=== PATIENT | male | born 1990 | race Caucasian/White ===

== ENCOUNTER 2019-10-20 08:05 | Emergency (ER) | payer OTHER, BC ==
--- NOTE | 2019-10-20 08:38 | EDM.PDOC ---
<Elmira Ochoa - Last Filed: 10/20/19 09:01> ED HPI GENERAL MEDICAL PROBLEM - General Chief Complaint: Back Pain or Injury Stated Complaint: SORE/STIFF BACK Time Seen by Provider: 10/20/19 08:33 Source of Information: Reports: Patient History Limitations: Reports: No Limitations - History of Present Illness INITIAL COMMENTS - FREE TEXT/NARRATIVE: Patient presents to the ED by private vehicle with concerns of mid to low back pain after a fall which occurred yesterday. The patient states that he was at work at [employer] when he slipped on the ice. The patient describes landing on his left elbow and back. The patient describes 2/10 mid to low back pain that is constant, achy. The pain is sharp and increases to 3/10 with certain movements. The patient denies any history of back problems or prior injury. He denies elbow pain at this time. He denies numbness or tingling in his lower extremities, numbness of tingling in upper extremities. Denies urinary incontinence or retention, denies saddle anesthesia. Onset Date: 10/19/19 Onset Time: 15:30 Duration: Constant Location: Reports: Back (mid to low back) Quality: Reports: Ache Severity: Mild Improves with: Reports: None Worsens with: Reports: None Treatments [employer]: Reports: Acetaminophen, NSAIDS Lower Back Pain Score (Numeric/FACES): 2 - Related Data Allergies Allergy/AdvReac Type Severity Reaction Status Date / Time No Known Allergies Allergy Verified 10/20/19 08:17 Home Meds: Home Meds . [No Known Home Meds] 10/20/19 [History] Past Medical History Respiratory History: Reports: Bronchitis, Recurrent - Infectious Disease History Infectious Disease History: Reports: Chicken Pox Social & Family History - Tobacco Use Smoking Status *Q: Never Smoker Second Hand Smoke Exposure: No - Caffeine Use Caffeine Use: Reports: Coffee - Recreational Drug Use Recreational Drug Use: No ED ROS GENERAL - Review of Systems Review Of Systems: Comprehensive ROS is negative, except as noted in HPI. ED EXAM,LOWER BACK PAIN/INJURY - Physical Exam Exam: See Below Exam Limited By: No Limitations General Appearance: Alert, No Apparent Distress Head: Atraumatic, Normocephalic Respiratory/Chest: No Respiratory Distress, Lungs Clear, Normal Breath Sounds Cardiovascular: Normal Peripheral Pulses, Regular Rate, Rhythm, No Edema, No Murmur Back Exam: Normal Inspection, Decreased Range of Motion (pain and decreased range of motion in rotation, flexion, extension, and lateral bending), Muscle Spasm (tenderness to palpation across mid to low back), Paraspinal Tenderness, Vertebral Tenderness. No: CVA Tenderness (L), CVA Tenderness (R) Extremities: Normal Inspection, Normal Range of Motion (full range of motion without pain in hip, knee, ankle ROM in all directions), Non-Tender, Normal Capillary Refill. No: Arm Pain, Leg Pain Neurological: Alert, Normal Mood/Affect, Normal Dorsiflexion, Normal Plantar Flexion, Normal Reflexes, No Motor/Sensory Deficits. No: Saddle Anesthesia, Difficulty Walking DTR - Lower Extremities: 2+: Knee (R), Knee (L), Ankle (R), Ankle (L) Psychiatric: Normal Affect, Normal Mood Skin Exam: Warm, Dry, Intact Course - Vital Signs Last Recorded V/S: Last Vital Signs Temp 97.4 F 10/20/19 08:12 Pulse 82 10/20/19 08:12 Resp 18 10/20/19 08:12 BP 107/79 10/20/19 08:12 Pulse Ox 98 10/20/19 08:12 - Orders/Labs/Meds Meds: Medications Discontinued Medications Generic Name Dose Route Start Last Admin Trade Name Polly PRN Reason Stop Dose Admin Cyclobenzaprine HCl 10 mg 10/20/19 08:44 10/20/19 08:57 Flexeril PO 10/20/19 08:45 10 mg ONETIME ONE Administration Ibuprofen 400 mg 10/20/19 08:44 10/20/19 08:57 Motrin PO 10/20/19 08:45 400 mg ONETIME ONE Administration - Radiology Interpretation Free Text/Narrative:: XR lumbar spine reveals no fracture or dislocation. Mild degenerative disc disease. XR thoracic spine reveals no fracture or dislocation. Mild degenerative disc disease. Departure - Departure Time of Disposition: 09:02 Disposition: Home, Self-Care 01 Condition: Good Clinical Impression: Muscle spasm Fall Qualifiers: Encounter type: initial encounter Qualified Code(s): W19.XXXA - Unspecified fall, initial encounter - Discharge Information *PRESCRIPTION DRUG MONITORING PROGRAM REVIEWED*: Not Applicable *COPY OF PRESCRIPTION DRUG MONITORING REPORT IN PATIENT HUBER: Not Applicable Instructions: Muscle Cramps and Spasms, [id number], Heat Therapy, Easy-to- Read Forms: ED Department Discharge Additional Instructions: Rest today. May apply lidocaine pain patch to sore back. May alternatively apply heat to back. Take flexeril as prescribed, as needed for pain. May also take ibuprofen as needed for pain. Take ibuprofen with food. Do not drive while taking flexeril. Follow-up with your primary care provider, or an alternative family medicine physician in 5-7 days if pain is not improved to consider referral to physical therapy. Sepsis Event Note - Evaluation Sepsis Screening Result: No Definite Risk - Focused Exam Vital Signs: Vital Signs Temp Pulse Resp BP Pulse Ox 10/20/19 08:12 97.4 F 82 18 107/79 98 Date Exam was Performed: 10/20/19 Time Exam was Performed: 09:01 <Yanira Rollisn - Last Filed: 10/20/19 15:16> Course - Re-Assessments/Exams Free Text/Narrative Re-Assessment/Exam: 10/20/19 15:15 I have examined the patient. I have discussed findings and treatment plan with the PA Student. I agree with the assessment and plan in the PA Students note Sepsis Event Note - Focused Exam Date Exam was Performed: 10/20/19 Time Exam was Performed: 15:13
[2019-10-20] MEDS ORDERED: Ibuprofen 400 MG Tab PO ONE (08:44)
[2019-10-20] MEDS ORDERED: Cyclobenzaprine 10 MG Tab PO ONE (08:44)
--- NOTE | 2019-10-21 13:27 | CR ---
EXAMINATION: Lumbar Spine 2 V SEX: Male AGE: 29 years CLINICAL HISTORY: 29-year-old male injured in fall (mid to low back pain). INTERPRETATION: Lumbar spine. 1. Normal density, height and alignment of the lowest thoracic and all lumbar vertebra. Subtle levorotoscoliosis. 2. No sign of pathologic skeletal lesion, lumbar fracture or spondylolisthesis. 3. Tiny marginal arthritic spurs (spondylosis) but normal intervertebral disc spacing. 4. Symmetric spacing normal-appearing SI and hip joints. CONCLUSION: Subtle rotoscoliosis and early arthritic change. No fracture or dislocation.
--- NOTE | 2019-10-21 13:30 | CR ---
EXAMINATION: Thoracic Spine 3V SEX: Male AGE: 29 years CLINICAL HISTORY: 29-year-old male injured in a fall (mid to low back pain). INTERPRETATION: 1. Subtle mid and lower thoracic kyphosis associated with underlying intervertebral disc space narrowing and some tiny marginal spur formation i.e. plain film evidence suggesting chronic disc disease. Clinical? 2. Homogeneous normal bone mineral density consistent with age and gender. Posterior ribs unremarkable. 3. No paraspinal soft tissue mass or hematoma. 4. No sign of pathologic skeletal lesion, fracture or spondylolisthesis (dislocation) thoracic spine. CONCLUSION: Multilevel lower mid thoracic disc disease. No fracture or dislocation dorsal spine.
== END 2019-10-20 09:09 | disposition home or self-care (01) ==
LOC: DL.ED 08:05
DX: M62.830 Muscle spasm of back (principal); W00.0XXA Fall on same level due to ice and snow, initial encounter; Y99.0 Civilian activity done for income or pay
CPT/HCPCS: 72072; 72100; 99283-25; A9270-GY

== ENCOUNTER 2021-10-31 16:28 | Emergency (ER) | payer OTHER ==
[2021-10-31] MEDS ORDERED: Methylnaltrexone 12 MG/0.6 ML SDV SUBCUT ONE (17:45)
[2021-10-31] MEDS ORDERED: Lactulose Soln 10 GM/15 ML 30 ML UD Cup PO ONE (17:45)
== END 2021-10-31 18:04 | disposition home or self-care (01) ==
LOC: DL.ED 16:28
DX: K59.03 Drug induced constipation (principal); T50.905A Adverse effect of unspecified drugs, medicaments and biological substances, initial encounter
CPT/HCPCS: 36415; 74018; 85025; 96372; 99284; A9270; J2212; 99283

== ENCOUNTER 2022-10-25 08:25 | Emergency (ER) | payer OTHER ==
[2022-10-25] MEDS ORDERED: Sodium Chloride 0.9% 10 ML Syringe FLUSH PRN (08:43)
[2022-10-25] MEDS ORDERED: Iopamidol 612 MG/ML 100 ML Bottle IVPUSH ONE (08:45)
[2022-10-25] MEDS ORDERED: Ondansetron 4 MG/2 ML SDV IVPUSH ONE (09:12)
[2022-10-25] MEDS ORDERED: Acetaminophen 500 MG Tab PO ONE (09:12)
[2022-10-25 09:32] LABS: ANION GAP 10.8 mEq/L (7-13)
[2022-10-25 12:02] LABS: CORONAVIRUS COVID-19 NAA NEGATIVE (NEGATIVE)
== END 2022-10-25 12:22 | disposition home or self-care (01) ==
LOC: DL.ED 08:25
DX: I88.0 Nonspecific mesenteric lymphadenitis (principal); Z20.822 Contact with and (suspected) exposure to COVID-19
CPT/HCPCS: 0240U; 36415; 71046; 74177; 80053; 81001; 83605; 85025; 87040; 96374; 99284; A9270; J2405; J3490; Q9967

== ENCOUNTER 2024-04-07 06:48 | Emergency (ER) | payer BC ==
[2024-04-07] MEDS: Ondansetron 4 MG/2 ML SDV IVPUSH ONE ×2 (07:30→10:06)
[2024-04-07] MEDS: Sodium Chloride 0.9% 10 ML Syringe FLUSH PRN (07:30)
[2024-04-07 07:32] LABS: BASOPHILS PERCENT AUTO 0.2 % (0.0-1.0); EOSINOPHILS PERCENT AUTO 0.8 % (1.0-3.0); HEMATOCRIT 48.9 % (40.0-54.0); HEMOGLOBIN 16.4 g/dL (14.0-18.0); LYMPHOCYTES PERCENT AUTO 8.5 % (20.5-50.1); MEAN CORPUSCULAR HEMOGLOBIN 27.8 pg (27.0-34.0); MEAN CORPUSCULAR HGB CONC 33.5 g/dL (33.0-35.0); MONOCYTES PERCENT AUTO 7.2 % (2-8); NEUTROPHILS PERCENT AUTO 83.3 % (42.2-75.2); PLATELET COUNT,PLT 314 10^3/uL (150-450); RED BLOOD CELL COUNT 5.89 10^6/uL (4.6-6.2)
[2024-04-07 07:42] LABS: A/G RATIO 1.1; ALBUMIN 4.6 g/dL (3.4-5.0); ANION GAP 16.2 mEq/L (7-13); BILIRUBIN TOTAL 0.8 mg/dL (0.2-1.0); BUN/CREATININE RATIO 10.8 (No establ ref range); CALCIUM 10.1 mg/dL (8.5-10.1); CREATININE 1.11 mg/dL (0.70-1.30); EST CRCL DRUG DOSING (CG) 111.08 mL/min; POTASSIUM,K 4.2 mmol/L (3.5-5.1); PROTEIN TOTAL,TP 8.8 g/dL (6.4-8.2)
[2024-04-07 07:45] LABS: LACTIC ACID 1.1 mmol/L (0.4-2.0)
[2024-04-07] MEDS: Sodium Chloride 0.9% 1,000 ML IV ONE (07:49)
[2024-04-07 07:53] LABS: BILIRUBIN,URINE NEGATIVE (NEGATIVE); COLOR,URINE DARK YELLOW (YELLOW); GLUCOSE,URINE NEGATIVE (NEGATIVE); KETONES,URINE NEGATIVE (NEGATIVE); LEUKOCYTE ESTERASE,URINE NEGATIVE (NEGATIVE); NITRITE,URINE NEGATIVE (NEGATIVE); OCCULT BLOOD,URINE NEGATIVE (NEGATIVE); PROTEIN,URINE 30 (NEGATIVE); UROBILINOGEN,URINE 0.2 mg/dL (0.2-1.0)
[2024-04-07 07:54] LABS: APPEARANCE,URINE SLIGHTLY CLOUDY (CLEAR)
[2024-04-07 08:04] LABS: BACTERIA,URINE FEW /HPF (0-FEW/HPF); EPITHELIAL CELLS,URINE RARE /HPF (NOT SEEN); MUCUS,URINE MANY /LPF (NOT SEEN); RBC,URINE 0-5 /HPF (0-5)
[2024-04-07] MEDS: Iopamidol 612 MG/ML 100 ML Bottle IVPUSH ONE (08:37)
[2024-04-07] MEDS: Benzocaine 20% Topical Spray UD MUCMEM ONE (09:40)
[2024-04-07] MEDS: Pantoprazole 40 MG Vial IVPUSH ONE (11:02)
== END 2024-04-07 11:35 ==
LOC: DL.ED 06:48
DX: K56.609 Unspecified intestinal obstruction, unspecified as to partial versus complete obstruction (principal); K50.919 Crohn's disease, unspecified, with unspecified complications; Z79.899 Other long term (current) drug therapy; Z86.16 Personal history of COVID-19
CPT/HCPCS: 36415; 74177; 80053; 81001; 82150; 82271; 83605; 83690; 83735; 85025; 86140; 96361; 96374; 96375; 96376; 99285; A9270; J2405; J2470; J7030; Q9967; J3490

== ENCOUNTER 2024-12-21 16:01 | Inpatient (IN) | payer BC ==
[2024-12-21 16:53] LABS: BASOPHILS PERCENT AUTO 0.3 % (0.0-1.0); EOSINOPHILS PERCENT AUTO 2.9 % (1.0-3.0); HEMATOCRIT 44.3 % (40.0-54.0); HEMOGLOBIN 16.1 g/dL (14.0-18.0); MEAN CORPUSCULAR HEMOGLOBIN 31.4 pg (27.0-34.0); MEAN CORPUSCULAR HGB CONC 36.3 g/dL (33.0-35.0); MEAN CORPUSCULAR VOLUME 86.5 fL (80-100); MONOCYTES PERCENT AUTO 10.1 % (2-8); NEUTROPHILS PERCENT AUTO 61.7 % (42.2-75.2); PLATELET COUNT,PLT 230 10^3/uL (150-450); RED BLOOD CELL COUNT 5.12 10^6/uL (4.6-6.2); WHITE BLOOD CELL COUNT,WBC 6.5 10^3/uL (5.0-10.0)
[2024-12-21 17:11] LABS: PROTHROMBIN TIME 10.3 SEC (9.0-12.0); PTT,PARTIAL THROMBOPLSTIN TIME 25.6 SEC (22.0-34.0)
[2024-12-21 17:12] LABS: A/G RATIO 1.1; ALBUMIN 3.8 g/dL (3.4-5.0); BILIRUBIN TOTAL 1.2 mg/dL (0.2-1.0); BUN/CREATININE RATIO 8.6 (No establ ref range); C-REACTIVE PROTEIN 1.78 ng/dL (<=0.50); CALCIUM 9.1 mg/dL (8.5-10.1); CREATININE 0.93 mg/dL (0.70-1.30); EST CRCL DRUG DOSING (CG) 143.71 mL/min; POTASSIUM,K 4.2 mmol/L (3.5-5.1); PROTEIN TOTAL,TP 7.3 g/dL (6.4-8.2)
[2024-12-21 17:17] LABS: LACTIC ACID 0.7 mmol/L (0.4-2.0)
[2024-12-21 17:20] LABS: ANION GAP 14.2 mEq/L (7-13)
[2024-12-21] MEDS: Iopamidol 612 MG/ML 100 ML Bottle IVPUSH ONE (17:24)
[2024-12-21] MEDS ORDERED: Acetaminophen 325 MG Tab PO PRN (19:07)
[2024-12-21] MEDS: Ketorolac 30 MG/ML SDV IVPUSH PRN (19:56)
[2024-12-21] MEDS: Ciprofloxacin 500 MG Tab PO SCH (19:57)
[2024-12-21] MEDS: metroNIDAZOLE 250 MG Tab PO SCH (19:57)
[2024-12-21] MEDS: methylPREDNISolone Sodium Succinate 40 MG/1 ML SDV IVPUSH SCH (19:59)
[2024-12-21] MEDS: Sodium Chloride 0.9% 1,000 ML IV SCH (20:00)
[2024-12-21 21:46] LABS: APPEARANCE,URINE CLEAR (CLEAR); BILIRUBIN,URINE NEGATIVE (NEGATIVE); COLOR,URINE YELLOW (YELLOW); GLUCOSE,URINE NEGATIVE (NEGATIVE); KETONES,URINE 40 (NEGATIVE); LEUKOCYTE ESTERASE,URINE NEGATIVE (NEGATIVE); NITRITE,URINE NEGATIVE (NEGATIVE); OCCULT BLOOD,URINE NEGATIVE (NEGATIVE); PH,URINE 6.5 (5.0-9.0); PROTEIN,URINE NEGATIVE (NEGATIVE); UROBILINOGEN,URINE 0.2 mg/dL (0.2-1.0)
[2024-12-21] MEDS: Melatonin 3 MG Tab PO PRN (22:07)
[2024-12-22] MEDS: Ondansetron 4 MG/2 ML SDV IVPUSH PRN (04:24)
[2024-12-22 06:47] LABS: BASOPHILS PERCENT AUTO 0.1 % (0.0-1.0); EOSINOPHILS PERCENT AUTO 0.1 % (1.0-3.0); HEMOGLOBIN 14.9 g/dL (14.0-18.0); LYMPHOCYTES PERCENT AUTO 7.9 % (20.5-50.1); MEAN CORPUSCULAR HEMOGLOBIN 30.8 pg (27.0-34.0); MEAN CORPUSCULAR HGB CONC 35.5 g/dL (33.0-35.0); MONOCYTES PERCENT AUTO 1.6 % (2-8); NEUTROPHILS PERCENT AUTO 90.3 % (42.2-75.2); PLATELET COUNT,PLT 231 10^3/uL (150-450); RED BLOOD CELL COUNT 4.83 10^6/uL (4.6-6.2)
[2024-12-22 06:48] LABS: A/G RATIO 0.9; ALBUMIN 3.4 g/dL (3.4-5.0); ANION GAP 13.6 mEq/L (7-13); BILIRUBIN TOTAL 1.1 mg/dL (0.2-1.0); BUN/CREATININE RATIO 13.3 (No establ ref range); C-REACTIVE PROTEIN 1.23 ng/dL (<=0.50); CALCIUM 9.2 mg/dL (8.5-10.1); CREATININE 0.9 mg/dL (0.70-1.30); EST CRCL DRUG DOSING (CG) 148.5 mL/min; MAGNESIUM 1.8 mg/dL (1.8-2.4); POTASSIUM,K 4.6 mmol/L (3.5-5.1)
[2024-12-22] MEDS: Metoclopramide 10 MG/2 ML SDV IVPUSH ONE (12:44)
[2024-12-22] MEDS: Metoclopramide 10 MG/2 ML SDV IVPUSH SCH (17:41)
[2024-12-23 06:47] LABS: BASOPHILS PERCENT AUTO 0.2 % (0.0-1.0); HEMATOCRIT 37.6 % (40.0-54.0); HEMOGLOBIN 12.8 g/dL (14.0-18.0); LYMPHOCYTES PERCENT AUTO 13.5 % (20.5-50.1); MEAN CORPUSCULAR HEMOGLOBIN 29.7 pg (27.0-34.0); MEAN CORPUSCULAR VOLUME 87.2 fL (80-100); MONOCYTES PERCENT AUTO 9.3 % (2-8); PLATELET COUNT,PLT 218 10^3/uL (150-450); RED BLOOD CELL COUNT 4.31 10^6/uL (4.6-6.2); WHITE BLOOD CELL COUNT,WBC 12.5 10^3/uL (5.0-10.0)
[2024-12-23 07:22] LABS: ALBUMIN 3.2 g/dL (3.4-5.0); ANION GAP 10.7 mEq/L (7-13); BILIRUBIN TOTAL 0.7 mg/dL (0.2-1.0); BUN/CREATININE RATIO 9.2 (No establ ref range); C-REACTIVE PROTEIN 0.7 ng/dL (<=0.50); CALCIUM 8.9 mg/dL (8.5-10.1); CREATININE 0.76 mg/dL (0.70-1.30); EST CRCL DRUG DOSING (CG) 175.86 mL/min; MAGNESIUM 1.8 mg/dL (1.8-2.4); POTASSIUM,K 3.7 mmol/L (3.5-5.1); PROTEIN TOTAL,TP 6.3 g/dL (6.4-8.2)
[2024-12-23 07:24] LABS: A/G RATIO 1.03
[2024-12-24 06:40] LABS: BASOPHILS PERCENT AUTO 0.1 % (0.0-1.0); EOSINOPHILS PERCENT AUTO 0.9 % (1.0-3.0); HEMATOCRIT 39.8 % (40.0-54.0); HEMOGLOBIN 13.6 g/dL (14.0-18.0); MEAN CORPUSCULAR HEMOGLOBIN 30.5 pg (27.0-34.0); MEAN CORPUSCULAR HGB CONC 34.2 g/dL (33.0-35.0); MEAN CORPUSCULAR VOLUME 89.2 fL (80-100); MONOCYTES PERCENT AUTO 9.6 % (2-8); NEUTROPHILS PERCENT AUTO 70.4 % (42.2-75.2); PLATELET COUNT,PLT 198 10^3/uL (150-450); RED BLOOD CELL COUNT 4.46 10^6/uL (4.6-6.2); WHITE BLOOD CELL COUNT,WBC 8.6 10^3/uL (5.0-10.0)
[2024-12-24 07:01] LABS: A/G RATIO 1.1; ALANINE AMINOTRANSFERASE,ALT 23 U/L (16-63); ALBUMIN 3.4 g/dL (3.4-5.0); ALKALINE PHOSPHATASE 85 U/L (46-116); ANION GAP 8.5 mEq/L (7-13); ASPARTATE AMNIOTRANSFERASE,AST 14 U/L (15-37); BILIRUBIN TOTAL 0.4 mg/dL (0.2-1.0); BLOOD UREA NITROGEN,BUN 11 mg/dL (7-18); BUN/CREATININE RATIO 11.1 (No establ ref range); CALCIUM 9.3 mg/dL (8.5-10.1); CARBON DIOXIDE,CO2 32 mmol/L (21-32); CHLORIDE,CL 104 mmol/L (98-107); CREATININE 0.99 mg/dL (0.70-1.30); GLUCOSE RANDOM 90 mg/dL (70-99); MAGNESIUM 1.8 mg/dL (1.8-2.4); POTASSIUM,K 3.5 mmol/L (3.5-5.1); PROTEIN TOTAL,TP 6.6 g/dL (6.4-8.2); SODIUM,NA 141 mmol/L (136-145)
[2024-12-24 07:12] LABS: C-REACTIVE PROTEIN < 0.50 ng/dL (<=0.50); ESTIMATED GFR 104 mL/min (>=60)
[2024-12-24] MEDS: Sodium Chloride 0.9% 10 ML Syringe FLUSH PRN (09:16)
== END 2024-12-24 10:15 | disposition home or self-care (01) | DRG 247 ==
LOC: DL.ED 16:01 → DL.MS 18:28
PROVIDERS: ADMIT Student in an Organized Health Care Education/Training Program; ATTEND Student in an Organized Health Care Education/Training Program
DX: K56.600 Partial intestinal obstruction, unspecified as to cause (principal); E87.1 Hypo-osmolality and hyponatremia; E88.09 Other disorders of plasma-protein metabolism, not elsewhere classified; K50.90 Crohn's disease, unspecified, without complications; D64.9 Anemia, unspecified; D72.829 Elevated white blood cell count, unspecified; Z79.899 Other long term (current) drug therapy; Z79.2 Long term (current) use of antibiotics
CPT/HCPCS: 36415; 74177; 80053; 81003; 83605; 83690; 83735; 85025; 85610; 85730; 86140; 87040; 99222; 99232; 99233; 99238; 99285; A9270-GY; J1885; J2405; J2765; J2919; J7030; Q9967